=== PATIENT | female | born 1990 | race African-American/Black ===

== ENCOUNTER 2020-07-01 15:47 | Inpatient (IN) | payer OTHER ==
--- NOTE | 2020-07-01 15:55 | PDOC ---
Rapid Medical Evaluation Time Seen by Provider: 07/01/20 15:53 Medical Evaluation: 07/01/20 15:53 I have performed a brief in-person examination on this patient. CC: "My doctor sent me in for hgb-5.0." Denies active bleeding. PMHx- fibroids. PE: MM pallor. Orders: labs, urine, ekg Patient will proceed to ED for further evaluation. 07/01/20 15:54 Discharge Disposition - Diagnosis Anemia - Referrals - Patient Instructions - Post Discharge Activity
[2020-07-01 15:58] VITALS: BMI 23.3
--- NOTE | 2020-07-01 19:23 | PDOC ---
History of Present Illness - General Chief Complaint: Blood Transfusion Stated Complaint: Blood transfusion Time Seen by Provider: 07/01/20 15:53 History Source: Patient - History of Present Illness Initial Comments: 07/01/20 21:58 29-year-old female with history of anemia due to heavy menstrual. Sent by PACKAGE LINE RELIEF OPERATOR for hemoglobin of 5.3. Patient reports that her PACKAGE LINE RELIEF OPERATOR is in [place] however lives close to this hospital. Patient reports that she has been having some headache and shortness of breath with activities that has been progressive. Denies fever/chills, nausea, vomiting, abdominal pain, chest pain at this time. Past History - Medical History Allergies/Adverse Reactions: Allergies Allergy/AdvReac Type Severity Reaction Status Date / Time No Known Allergies Allergy Verified 07/01/20 15:54 Home Medications: Ambulatory Orders NK [No Known Home Medication] 07/01/20 Asthma: Yes COPD: No - Reproductive History Is Patient Now?: No - Psycho-Social/Smoking History Smoking History: Never smoked Have you smoked in the past 12 months: No - Substance Abuse Hx (Audit-C & DAST Scrn) How often the patient has a drink containing alcohol: Never Score: In Men: 4 or > Positive; In Women: 3 or > Positive: 0 Screen Result (Pos requires Nsg. Audit-10AR): Negative In the last yr the pt used illegal drug/Rx for NonMed reason: No Score: Yes response is considered Positive: 0 Screen Result (Positive result requires Nsg. DAST-10): Negative Review of Systems - Review of Systems Able to Perform ROS?: Yes Is the patient limited [place] proficient: No Constitutional: No: Symptoms Reported, See HPI, Chills, Diaphoresis, Fever, Loss of Appetite, Malaise, Night Sweats, Weakness, Weight Stable, Unintentional Wgt. Loss, Unexplained wgt Loss, Other Respiratory: Yes: SOB with Exertion Neurological: Yes: Headache *Physical Exam - Vital Signs Last Vital Signs Temp Pulse Resp BP Pulse Ox 97.8 F 89 18 121/68 99 07/01/20 15:54 07/01/20 15:54 07/01/20 15:54 07/01/20 15:54 07/01/20 15:54 - Physical Exam General Appearance: Yes: Appropriately Dressed Respiratory/Chest: positive: Lungs Clear, Normal Breath Sounds Extremity: positive: Normal Capillary Refill, Normal Inspection, Normal Range of Motion Integumentary: positive: Warm, Pale Neurologic: positive: Fully Oriented, Alert, Normal Mood/Affect ED Treatment Course - LABORATORY CBC & Chemistry Diagram: 07/01/20 18:06 07/01/20 18:06 Medical Decision Making - Medical Decision Making 07/02/20 02:27 A: anemia; low hemoglobin P: cbc cmp pt/ptt type and screen admission patient admitted under the hospitalist service Discharge - Discharge Information Problems reviewed: Yes Clinical Impression/Diagnosis: Low hemoglobin Anemia Qualifiers: Anemia type: iron deficiency Iron deficiency anemia type: chronic blood loss Qualified Code(s): D50.0 - Iron deficiency anemia secondary to blood loss (chronic) - Admission Yes - Follow up/Referral - Patient Discharge Instructions - Post Discharge Activity
[2020-07-01 19:37] LABS: EOS % 0.6 % (0-4.5); HEMATOCRIT 20.9 % (32.4-45.2); LYMPH % 38.7 % (8-40); MCHC 28.6 g/dl (32.0-36.0); MEAN CELL VOLUME 62.1 fl (80-96); MEAN PLT VOLUME 9.4 fl (7.5-11.1); MONO % 10.4 % (3.8-10.2); NEUT % 48.3 % (42.8-82.8); PLATELET COUNT 238 K/MM3 (134-434); RBC 3.36 M/mm3 (3.60-5.2); WHITE BLOOD COUNT 3.8 K/mm3 (4.0-10.0)
[2020-07-01 19:46] LABS: MCH 17.8 pg (25.7-33.7)
[2020-07-01 20:36] LABS: ALBUMIN 2.9 g/dl (3.4-5.0); BILIRUBIN,TOTAL 0.2 mg/dL (0.2-1); BLOOD UREA NITROGEN 16.1 mg/dL (7-18); CALCIUM 8.7 mg/dL (8.5-10.1); CREATININE 0.7 mg/dL (0.55-1.3); POTASSIUM 4.4 mmol/L (3.5-5.1); TOT PROT 7.1 g/dl (6.4-8.2)
--- OUTSIDE RECORDS SUMMARY | 2020-07-01 23:23 | XMS ---
:1990 Author Organization [facility] Support Name Relationship Address Phone [employer] Unavailable N/A [place] [id number] [employer] [address] [place] [phone] Re-disclosure Warning The records that you are about to access may contain information from federally- assisted alcohol or drug abuse programs. If such information is present, then the following federally mandated warning applies: This information has been disclosed to you from records protected by federal confidentiality rules (42 CFR part 2). The federal rules prohibit you from making any further disclosure of this information unless further disclosure is expressly permitted by the written consent of the person to whom it pertains or as otherwise permitted by 42 CFR part 2. A general authorization for the release of medical or other information is NOT sufficient for this purpose. The Federal rules restrict any use of the information to criminally investigate or prosecute any alcohol or drug abuse patient.The records that you are about to access may contain highly sensitive health information, the redisclosure of which is protected by Article 27-F of the [facility] Public Health law. If you continue you may haveaccess to information: Regarding HIV / AIDS; Provided by facilities licensed or operated by the [facility] Office of Mental Health; or Provided by the [facility] Office for People With Developmental Disabilities. If such information is present, then the following [facility] mandated warning applies: This information has been disclosed to you from confidential records which are protected by state law. State law prohibits you from making any further disclosure of this information without the specific written consent of the person to whom it pertains, or as otherwise permitted by law. Any unauthorized further disclosure in violation of state law may result in a fine or long term sentence or both. A general authorization for the release of medical or other information is NOT sufficient authorization for further disclosure. Insurance Providers Payer name Policy type Policy ID Covered Covered democrat's Policy P teodoro / Coverage democrat ID relationship to [employer] ormation type [employer] [id number] [employer]
--- NOTE | 2020-07-01 23:48 | PN ---
Teaching Attending Note Name of Resident: Fernanda Moise ATTENDING PHYSICIAN STATEMENT I saw and evaluated the patient. I reviewed the resident's note and discussed the case with the resident. I agree with the resident's findings and plan as documented. SUBJECTIVE: 29yoF with h/o uterine fibroids and iron deficiency anemia who presents for evaluation of anemia. Patient reports she had a routine appointment with her area intelligence technician 4 days prior to admission and had labs drawn at the time. She was notified that her hemoglobin was around 5 on 06/29 and was recommended to come to the ED. She felt otherwise well so she delayed for a few days but presented tonight because of worsening headache. Notes headaches for about 2 weeks, occasional dyspnea with exertion but no chest pain, palpitations, or syncope. LMP /16, typically lasts about 7 days with numerous large clots for four of those days, regular cycles roughly 23 days. Has been diagnosed with iron deficiency anemia but was unable to tolerate PO iron tablets due to nausea so she has not been taking them regularly. No prior transfusions. Tentative plan for ablation in September. Patient was hemodynamically stable on arrival to the ED. Labs notable for WBC 3.8, Hgb 6.0, iron saturation 5%. test negative. Patient consented to PRBC transfusion, admitted for further management. OBJECTIVE: Vital Signs - 24 hr 07/01/20 07/01/20 07/01/20 15:54 20:46 22:25 Temperature 97.8 F 98.1 F Pulse Rate 89 Pulse Rate [ 78 Right Radial] Respiratory 18 16 Rate Blood Pressure 121/68 Blood Pressure 115/58 L [Left Arm] O2 Sat by Pulse 99 99 98 Oximetry (%) EXAM Gen: Tired appearing but awake, alert, NAD. General pallor HEENT: MMM, NC/AT CV: RRR, no MRG Resp: CTAB, unlabored Abd: Soft, NT, ND. Palpable fundus suprapubic area Ext: No edema Derm: No rash Neuro: CN II-XII grossly intact Psych: AOx3, appropriate mood/affect Laboratory Results - last 24 hr 07/01/20 07/01/20 07/01/20 18:06 18:06 18:06 WBC 3.8 L RBC 3.36 L Hgb 6.0 L* Hct 20.9 L MCV 62.1 L MCH 17.8 L MCHC 28.6 L RDW 20.0 H Plt Count 238 MPV 9.4 Absolute Neuts (auto) 1.8 Neutrophils % 48.3 Lymphocytes % 38.7 Monocytes % 10.4 H Eosinophils % 0.6 Basophils % 2.0 Nucleated RBC % 0 Sodium 140 Potassium 4.4 Chloride 108 H Carbon Dioxide 26 Anion Gap 7 L BUN 16.1 Creatinine 0.7 Est GFR (CKD-EPI)AfAm 133.81 Est GFR (CKD-EPI)NonAf 115.45 Random Glucose 86 Calcium 8.7 Iron 22 L TIBC 399 Iron Saturation 5 L Unsaturated IBC 377 H Ferritin 6.2 L Total Bilirubin 0.2 AST 45 H ALT 24 Alkaline Phosphatase 52 Total Protein 7.1 Albumin 2.9 L Vitamin B12 782 Serum Folate 18 H Serum , Qual Blood Type O POSITIVE Antibody Screen Negative Crossmatch See Detail 07/01/20 18:06 WBC RBC Hgb Hct MCV MCH MCHC RDW Plt Count MPV Absolute Neuts (auto) Neutrophils % Lymphocytes % Monocytes % Eosinophils % Basophils % Nucleated RBC % Sodium Potassium Chloride Carbon Dioxide Anion Gap BUN Creatinine Est GFR (CKD-EPI)AfAm Est GFR (CKD-EPI)NonAf Random Glucose Calcium Iron TIBC Iron Saturation Unsaturated IBC Ferritin Total Bilirubin AST ALT Alkaline Phosphatase Total Protein Albumin Vitamin B12 Serum Folate Serum , Qual Negative Blood Type Antibody Screen Crossmatch ASSESSMENT AND PLAN: 29yoF with h/o uterine fibroids and iron deficiency anemia who presents for evaluation of anemia. Symptomatic, acute on chronic anemia in setting of fibroids and menorrhagia Hemodynamically stable Willing to resume PO iron - 2U PRBC - rpt H/H after transfusion - start oral iron with Zofran PRN - outpatient f/u with urogynaecologist Leukopenia WBC 3.8 No signs/sx of acute infection - rpt in AM - monitor clinically DVT ppx: SCD
--- NOTE | 2020-07-02 01:24 | HP ---
CHIEF COMPLAINT: Sent by her photo print specialist after Hb recorded as 5.3 Shipyard Helper: [facility] HISTORY OF PRESENT ILLNESS: Hanh Spring is a 29 year old woman with recent diagnosis of fibroids who presents to the ED after her photo print specialist saw labs came back with Hb 5.3. She states that approx 1 year ago she began to have heavier vaginal bleeding during her periods with passage of several large clots every month. Cycles occur regularly every 23 days, last 7 days with 3 days of heavy bleeding requiring 10+ pads/day. On days with the heaviest flow she has been taking off work due to uncontrolled leakage and lower abdominal cramping. She was prescribed oral iron last year, but experienced nausea and stopped taking them. Today she reports increased dyspnea the past several weeks associated with walking, headaches, and off and on lightheadedness. Denies fever, chills, chest pain, palpitations, syncope, cough, abdominal pain, hematochezia, hematuria, dysuria, edema. ER course was notable for: - Vitals within normal limits T 98, P 89, BP 121/68, O2 sat 100 on room air - Labs: Hb 6, hematocrit 20.9, Iron 22, ferritin 6.2, iron saturation 5, TIBC nl Recent Travel: None PAST MEDICAL HISTORY: Fibroids diagnosed 3 months ago PAST SURGICAL HISTORY: None Social History: Smoking:No Alcohol: Socially Drugs: No Allergies No Known Allergies Allergy (Verified 07/01/20 15:54) HOME MEDICATIONS: Home Medications Medication Instructions Recorded NK [No Known Home Medication] 07/01/20 REVIEW OF SYSTEMS SEE HPI PHYSICAL EXAMINATION Vital Signs - 24 hr 07/01/20 07/01/20 07/01/20 15:54 20:46 22:25 Temperature 97.8 F 98.1 F Pulse Rate 89 Pulse Rate [ 78 Right Radial] Respiratory 18 16 Rate Blood Pressure 121/68 Blood Pressure 115/58 L [Left Arm] O2 Sat by Pulse 99 99 98 Oximetry (%) GENERAL: Awake, alert, and fully oriented, in no acute distress. HEAD: Normal with no signs of trauma. EYES: Pupils equal, round and reactive to light, extraocular movements intact EARS, NOSE, THROAT: Ears normal, nares patent, oropharynx clear without exudates. Moist mucous membranes. NECK: Normal range of motion, supple without lymphadenopathy LUNGS: Breath sounds equal, clear to auscultation bilaterally. No wheezes, and no crackles. No accessory muscle use. HEART: Regular rate and rhythm, normal S1 and S2 without murmur ABDOMEN: Soft, nontender, not distended, normoactive bowel sounds LOWER EXTREMITIES: 2+ pulses, warm, well-perfused. No calf tenderness. No peripheral edema. NEUROLOGICAL: Normal speech. PSYCHIATRIC: Cooperative. Good eye contact. Appropriate mood and affect. SKIN: Warm, dry, normal turgor, no rashes or lesions noted, normal capillary refill. Laboratory Results - last 24 hr 07/01/20 07/01/20 07/01/20 18:06 18:06 18:06 WBC 3.8 L RBC 3.36 L Hgb 6.0 L* Hct 20.9 L MCV 62.1 L MCH 17.8 L MCHC 28.6 L RDW 20.0 H Plt Count 238 MPV 9.4 Absolute Neuts (auto) 1.8 Neutrophils % 48.3 Lymphocytes % 38.7 Monocytes % 10.4 H Eosinophils % 0.6 Basophils % 2.0 Nucleated RBC % 0 Sodium 140 Potassium 4.4 Chloride 108 H Carbon Dioxide 26 Anion Gap 7 L BUN 16.1 Creatinine 0.7 Est GFR (CKD-EPI)AfAm 133.81 Est GFR (CKD-EPI)NonAf 115.45 Random Glucose 86 Calcium 8.7 Iron 22 L TIBC 399 Iron Saturation 5 L Unsaturated IBC 377 H Ferritin 6.2 L Total Bilirubin 0.2 AST 45 H ALT 24 Alkaline Phosphatase 52 Total Protein 7.1 Albumin 2.9 L Vitamin B12 782 Serum Folate 18 H Serum , Qual Blood Type O POSITIVE Antibody Screen Negative Crossmatch See Detail 07/01/20 07/02/20 18:06 00:01 WBC RBC Hgb Hct MCV MCH MCHC RDW Plt Count MPV Absolute Neuts (auto) Neutrophils % Lymphocytes % Monocytes % Eosinophils % Basophils % Nucleated RBC % Sodium Potassium Chloride Carbon Dioxide Anion Gap BUN Creatinine Est GFR (CKD-EPI)AfAm Est GFR (CKD-EPI)NonAf Random Glucose Calcium Iron TIBC Iron Saturation Unsaturated IBC Ferritin Total Bilirubin AST ALT Alkaline Phosphatase Total Protein Albumin Vitamin B12 Serum Folate Serum , Qual Negative Blood Type O POSITIVE Antibody Screen Crossmatch ASSESSMENT/PLAN: Hanh Spring is a 29 year old woman diagnosed with fibroids, being admitted after Hb was found to be 5.3 on out patient labs. #Iron Deficiency Anemia - Labs suggestive of iron def anemia: Low iron, low ferritin, low iron saturation - Due to fibroids - S/p 1 unit PRBCs in ED - Oral iron supplementation ordered - Zofran ordered for managment of nausea associated with oral iron supplements - Monitor am Hb; transfuse if < 7 - F/u out patient for surgery scheduled with her marble setter helper in September -- pt deciding b/t embolization vs. myomectomy #Leukopenia - WBC 3.8 on admission - Monitor am labs DVT prophylaxis: SCDs FEN - No standing fluids - Monitor electrolytes - Regular diet Disposition: Med/surg FULL CODE Family Medical History Family History: As Documented Visit type - Emergency Visit Emergency Visit: Yes ED Registration Date: 07/01/20 Care time: The patient presented to the Emergency Department on the above date and was hospitalized for further evaluation of their emergent condition. - New Patient This patient is new to me today: Yes Date on this admission: 07/02/20 - Critical Care Critical Care patient: No ATTENDING PHYSICIAN STATEMENT I saw and evaluated the patient. I reviewed the resident's note and discussed the case with the resident. I agree with the resident's findings and plan as documented. SUBJECTIVE: OBJECTIVE: ASSESSMENT AND PLAN:
[2020-07-02] MEDS ORDERED: ONDANSETRON 4 MG/2 ML VIAL IVPUSH PRN (03:08)
[2020-07-02 03:44] LABS: INR 1.03 (0.83-1.09); PROTHROMBIN TIME (PATIENT) 12.1 SEC (9.7-13.0)
[2020-07-02] MEDS ORDERED: ONDANSETRON *ODT* 4 MG TABLET SL PRN (03:48)
[2020-07-02] MEDS: FERROUS SO4 325 MG TABLET (FP) PO SCH ×3 (08:33→18:00)
[2020-07-02] MEDS ORDERED: IRON SUCROSE INJECTION 200 MG in SODIUM CHLORIDE 90 ML IVPB ONE (09:00)
[2020-07-02 09:12] LABS: BASO % 0.9 % (0-2.0); EOS % 1.7 % (0-4.5); HEMATOCRIT 25.2 % (32.4-45.2); HEMOGLOBIN 7.6 GM/dL (10.7-15.3); LYMPH % 36.6 % (8-40); MCH 20.2 pg (25.7-33.7); MCHC 30.3 g/dl (32.0-36.0); MEAN CELL VOLUME 66.8 fl (80-96); MEAN PLT VOLUME 8.7 fl (7.5-11.1); MONO % 12.3 % (3.8-10.2); NEUT % 48.5 % (42.8-82.8); PLATELET COUNT 210 K/MM3 (134-434); RBC 3.78 M/mm3 (3.60-5.2); RDW 26.2 % (11.6-15.6); WHITE BLOOD COUNT 2.9 K/mm3 (4.0-10.0)
[2020-07-02 09:35] LABS: ALBUMIN 2.7 g/dl (3.4-5.0); BILIRUBIN,TOTAL 0.2 mg/dL (0.2-1); BLOOD UREA NITROGEN 14.8 mg/dL (7-18); CALCIUM 8.5 mg/dL (8.5-10.1); CREATININE 0.7 mg/dL (0.55-1.3); TOT PROT 6.4 g/dl (6.4-8.2)
--- NOTE | 2020-07-02 09:54 | EKG ---
Test Reason : Blood Pressure : / mmHG Vent. Rate : 074 BPM Atrial Rate : 074 BPM P-R Int : 178 ms QRS Dur : 090 ms QT Int : 392 ms P-R-T Axes : 066 042 035 degrees QTc Int : 435 ms NORMAL SINUS RHYTHM POSSIBLE LEFT ATRIAL ENLARGEMENT BORDERLINE ECG NO PREVIOUS ECGS AVAILABLE Confirmed by Tomi Grant MD ([id number]) on 07/02/2020 9:53:26 AM Referred By: Confirmed By:Tomi Grant MD
--- NOTE | 2020-07-02 12:31 | PN ---
Teaching Attending Note Name of Resident: Tra De Jesus ATTENDING PHYSICIAN STATEMENT I saw and evaluated the patient. I reviewed the resident's note and discussed the case with the resident. I agree with the resident's findings and plan as documented. SUBJECTIVE: Seen and examined at bedside. Patient states she did not get much sleep overnig ht and is tired. Denies headache, lightheadedness, dizziness, shortness of breath, chest pain. Hemoglobin amari from 6.027.6 status post 2 units. She denies any current vaginal bleeding. She also received 200 mg of iron sucrose. OBJECTIVE Last Vital Signs Temp Pulse Resp BP Pulse Ox 98.8 F 69 20 116/57 L 99 07/02/20 08:15 07/02/20 08:15 07/02/20 08:15 07/02/20 08:15 07/02/20 09:00 PE: Per resident note Labs/Imaging: reviewed ASSESSMENT/PLAN 29-year-old female with history of uterine fibroids and iron deficiency anemia presented for symptomatic anemia with a hemoglobin of 6. Patient has not been taking p.o. iron or oral contraceptives as an outpatient. She was transfused 2 units of blood with appropriate increase in hemoglobin was also given 200 mg of IV iron. Patient is currently hemodynamically stable and is medically cleared for discharge. Patient was instructed to follow-up with her train reservation clerk either to push up the date of her surgery for fibroids (currently planned for september) or to obtain oral contraceptives in the meantime.
[2020-07-02 14:10] VITALS: BP 111/46; PULSE 75; TEMP 98.4
--- NOTE | 2020-07-02 15:03 | DS ---
Physical Exam: SUBJECTIVE: Patient seen and examined OBJECTIVE: Vital Signs Period Temp Pulse Resp BP Sys/Clark Pulse Ox Last 24 Hr 97.8 F-98.8 F 64-89 16-20 96-121/46-79 98-100 PHYSICAL EXAM GENERAL: The patient is awake, alert, and fully oriented, in no acute distress. HEAD: Normal with no signs of trauma. EYES: PERRL, extraocular movements intact, sclera anicteric, conjunctiva clear. ENT: Ears normal, nares patent, oropharynx clear without exudates, moist mucous membranes. NECK: Trachea midline, full range of motion, supple. LUNGS: Breath sounds equal, clear to auscultation bilaterally, no wheezes, no crackles, no accessory muscle use. HEART: Regular rate and rhythm, S1, S2 without murmur, rub or gallop. ABDOMEN: Soft, nontender, nondistended, normoactive bowel sounds, no guarding, no rebound, no hepatosplenomegaly, no masses. EXTREMITIES: 2+ pulses, warm, well-perfused, no edema. NEUROLOGICAL: Cranial nerves II through XII grossly intact. Normal speech, gait not observed. PSYCH: Normal mood, normal affect. SKIN: Warm, dry, normal turgor, no rashes or lesions noted. LABS Laboratory Results - last 24 hr 07/01/20 07/01/20 07/01/20 18:06 18:06 18:06 WBC 3.8 L RBC 3.36 L Hgb 6.0 L* Hct 20.9 L MCV 62.1 L MCH 17.8 L MCHC 28.6 L RDW 20.0 H Plt Count 238 MPV 9.4 Absolute Neuts (auto) 1.8 Neutrophils % 48.3 Lymphocytes % 38.7 Monocytes % 10.4 H Eosinophils % 0.6 Basophils % 2.0 Nucleated RBC % 0 PT with INR INR PTT (Actin FS) Sodium 140 Potassium 4.4 Chloride 108 H Carbon Dioxide 26 Anion Gap 7 L BUN 16.1 Creatinine 0.7 Est GFR (CKD-EPI)AfAm 133.81 Est GFR (CKD-EPI)NonAf 115.45 Random Glucose 86 Calcium 8.7 Iron 22 L TIBC 399 Iron Saturation 5 L Unsaturated IBC 377 H Ferritin 6.2 L Total Bilirubin 0.2 AST 45 H ALT 24 Alkaline Phosphatase 52 Total Protein 7.1 Albumin 2.9 L Vitamin B12 782 Serum Folate 18 H Serum , Qual Blood Type O POSITIVE Antibody Screen Negative Crossmatch See Detail 07/01/20 07/02/20 07/02/20 18:06 00:01 02:40 WBC RBC Hgb Hct MCV MCH MCHC RDW Plt Count MPV Absolute Neuts (auto) Neutrophils % Lymphocytes % Monocytes % Eosinophils % Basophils % Nucleated RBC % PT with INR 12.10 INR 1.03 PTT (Actin FS) 27.0 Sodium Potassium Chloride Carbon Dioxide Anion Gap BUN Creatinine Est GFR (CKD-EPI)AfAm Est GFR (CKD-EPI)NonAf Random Glucose Calcium Iron TIBC Iron Saturation Unsaturated IBC Ferritin Total Bilirubin AST ALT Alkaline Phosphatase Total Protein Albumin Vitamin B12 Serum Folate Serum , Qual Negative Blood Type O POSITIVE Antibody Screen Crossmatch 07/02/20 07/02/20 06:00 08:53 WBC 2.9 L RBC 3.78 Hgb 7.6 L Hct 25.2 L D MCV 66.8 L MCH 20.2 L D MCHC 30.3 L RDW 26.2 H Plt Count 210 MPV 8.7 Absolute Neuts (auto) 1.4 L Neutrophils % 48.5 Lymphocytes % 36.6 Monocytes % 12.3 H Eosinophils % 1.7 D Basophils % 0.9 Nucleated RBC % 0 PT with INR INR PTT (Actin FS) Sodium 139 Potassium 4.0 Chloride 107 Carbon Dioxide 28 Anion Gap 4 L BUN 14.8 Creatinine 0.7 Est GFR (CKD-EPI)AfAm 133.81 Est GFR (CKD-EPI)NonAf 115.45 Random Glucose 115 H Calcium 8.5 Iron TIBC Iron Saturation Unsaturated IBC Ferritin Total Bilirubin 0.2 AST 14 L ALT 20 Alkaline Phosphatase 49 Total Protein 6.4 Albumin 2.7 L Vitamin B12 Serum Folate Serum , Qual Blood Type Antibody Screen Crossmatch HOSPITAL COURSE: Date of Admission:07/01/20 Date of Discharge: 07/02/20 Discharge Summary Problems reviewed: Yes Reason For Visit: ANEMIA,LOW HEMOGLOBIN Current Active Problems Anemia (Acute) Low hemoglobin (Acute) - Instructions Diet, Activity, Other Instructions: You presented to the hospital due to a very low hemoglobin level as reported by your Locomotive Mechanic. You have received 2 blood transfusions as well as intravenous iron. You will be sent home on oral iron 325 mg Daily You will be sent home on Vitamin C 500 mg Daily. This is to help in the absorption for the iron You will also be sent home on an anti-nausea medication: Zofran 4 mg. You may take this medication every 8-12 hours as needed for nausea. Please follow up with your Locomotive Mechanic this week in light of your heavy menstrual cycles. You should repeat a blood test (CBC) to recheck your hemoglobin level within 1 week. Please return to the emergency department immediately if you begin to experience increasing blood loss, lightheadedness, chest pain, shortness of breath, nausea/vomiting, or any other abnormal symptoms. Referrals: ON STAFF,NOT [Primary Care Provider] - - Home Medications Comprehensive Discharge Medication List: Ambulatory Orders Ascorbic Acid [Vitamin C] 500 mg PO DAILY #30 capsule 07/02/20 Ferrous Sulfate 325 mg PO DAILY #30 tablet 07/02/20 Ondansetron HCl [Zofran] 4 mg PO BID PRN #30 tablet 07/02/20 ATTENDING PHYSICIAN STATEMENT I saw and evaluated the patient. I reviewed the resident's note and discussed the case with the resident. I agree with the resident's findings and plan as documented. SUBJECTIVE: OBJECTIVE: ASSESSMENT AND PLAN:
== END 2020-07-02 18:22 | disposition home or self-care (01) | DRG 663 ==
LOC: JER 15:47 → JERBED 22:41 → J6S 07-02 05:29
PROVIDERS: ADMIT Hospitalist; ATTEND Internal Medicine
PROC: 30233N1 Transfusion of Nonautologous Red Blood Cells into Peripheral Vein, Percutaneous Approach (ICD-10-PCS; principal; 2020-07-01)
DX: D50.0 Iron deficiency anemia secondary to blood loss (chronic) (principal); D25.9 Leiomyoma of uterus, unspecified; N92.0 Excessive and frequent menstruation with regular cycle; D72.819 Decreased white blood cell count, unspecified
CPT/HCPCS: 36415; 36430; 71046-TC-FY; 80053; 82607; 82728; 82746; 83010; 83540; 83550; 84703; 85025; 85610; 85730; 86850; 86900; 86901; 86922; 93005; 93010; 99285-25; C9803; J1756; P9058; U0003